=== PATIENT | female | born 1965 | race Caucasian/White ===

== ENCOUNTER 2016-11-05 19:04 | Emergency (ER) | payer OTHER ==
[~2016-11-05] VITALS: Ht 152.4 cm; Wt 58.1 kg
--- NOTE | 2016-11-05 19:46 | ED CARDIAC/CP/PALPITATIONS ---
History of Present Illness General Chief Complaint: Chest Pain Stated Complaint: CP X FEW WEEKS Source: patient, family, old records Exam Limitations: no limitations Vital Signs & Intake/Output Vital Signs & Intake/Output Vital Signs Date Time Temp Pulse Resp B/P B/P Pulse O2 O2 Flow FiO2 Mean Ox Delivery Rate 11/05 2100 98.2 76 17 132/72 99 Room Air 11/05 1924 98.6 84 16 148/84 100 Room Air Allergies Coded Allergies: No Known Allergies (11/05/16) Reconcile Medications Metoclopramide HCl (Reglan) 10 MG TABLET 1 TAB PO TID PRN GI (Reported) 30 minutes before meals and bedtime Topiramate 25 MG TABLET 1 TAB PO DAILY CAR (Reported) Triage Note: TRIAGE: LEFT SIDED CP X WEEKS, STATES IT IS WORSE WITH PHYSICAL MOVEMENT AND ASSISTING PATIENTS AT WORK. INTERMITTENT NAUSEA AND SOB. RECENTLY QUIT SMOKING 4 MONTHS AGO. ALSO REPORTS OCCASSIONAL PAIN IN HER ARMS. DENIES DIAPHORESIS. Triage Nurses Notes Reviewed? yes HPI: Over the past few weeks patient has noticed that she has pain to her left anterior chest radiating to her left shoulder with movement. There is no shortness of breath. There is no chest pain when she is not moving her arm or carrying something. Patient is a physical therapist. There is no dyspnea on exertion or orthopnea. There is no chest pain with activity to does not include movement of her arm or carrying anything heavy. When she has the pain is sharp and stabbing in nature and she rates as a 7 out of 10. Once she stops moving her left arm or puts down a heavy weight the pain entirely goes away. Past History Travel History Traveled to [place] past 21 day No Medical History Any Pertinent Medical History? see below for history Neurological: MIGRAINES EENT: NONE Cardiovascular: MURMUR Respiratory: NONE Gastrointestinal: hiatal hernia, ULCERS Hepatic: NONE Renal: NONE Musculoskeletal: NONE Psychiatric: NONE Endocrine: NONE Surgical History Surgical History: non-contributory Psychosocial History What is your primary language Bel[place]ian Tobacco Use: Quit <30 days ago ETOH Use: occasional use Illicit Drug Use: denies illicit drug use Family History Hx Contributory? No Review of Systems Review of Systems Constitutional: Reports: no symptoms. EENTM: Reports: no symptoms. Respiratory: Reports: no symptoms. Cardiovascular: Reports: see HPI, chest pain. GI: Reports: no symptoms. Genitourinary: Reports: no symptoms. Musculoskeletal: Reports: no symptoms. Skin: Reports: no symptoms. Neurological/Psychological: Reports: no symptoms. Hematologic/Endocrine: Reports: no symptoms. Immunologic/Allergic: Reports: no symptoms. All Other Systems: Reviewed and Negative Physical Exam Physical Exam General Appearance: well developed/nourished, alert, awake, anxious, moderate distress Head: atraumatic, normal appearance Eyes: Bilateral: PERRL, EOMI. Ears, Nose, Throat: normal pharynx, normal ENT inspection, hearing grossly normal Neck: normal inspection, supple, full range of motion, NO JVD Respiratory: normal breath sounds, no respiratory distress, lungs clear, TENDER TO PALPATION Cardiovascular: regular rate/rhythm, normal peripheral pulses Gastrointestinal: normal bowel sounds, soft, non-tender, no organomegaly Back: normal inspection, normal range of motion Extremities: normal inspection, normal capillary refill, normal range of motion, no edema Neurologic/Psych: no motor/sensory deficits, awake, alert, oriented x 3, normal gait, normal mood/affect Skin: intact, normal color, warm/dry Lymphatic: no anterior cervical antonia Core Measures ACS in differential dx? Yes ASA ordered for poss ACS? No-ACS ruled out Severe Sepsis Present: No Septic Shock Present: No Progress Differential Diagnosis: AMI, costochondritis, musculoskeletal pain, myocarditis, pericarditis, pneumonia, pneumothorax, pulmonary embolism, PUD/GERD Plan of Care: Orders Procedure Date/time Status Telemetry/Firmware Manager 11/05 1948 Active TROPONIN LEVEL 11/05 1948 Complete D-DIMER 11/05 1948 Complete COMPREHENSIVE METABOLIC PANEL 11/05 1948 Complete CBC WITHOUT DIFFERENTIAL 11/05 1948 Complete EKG 11/06 1903 Active Laboratory Tests 11/05/16 2000: Anion Gap 9, Estimated GFR > 60, BUN/Creatinine Ratio 21.4, Glucose 82, Calcium 9.0, Total Bilirubin 0.3, AST 13 L, ALT 30, Alkaline Phosphatase 45, Troponin I < 0.01, Total Protein 6.7, Albumin 4.0, Globulin 2.7, Albumin/Globulin Ratio 1.5 , D-Dimer < 200, CBC w Diff NO MAN DIFF REQ, RBC 3.96 L, MCV 80.3 L, MCH 26.6 L, RDW 16.9 H, MPV 7.9, Gran % 45.0, Lymphocytes % 42.6, Monocytes % 9.9 H, Eosinophils % 1.9, Basophils % 0.6, Absolute Granulocytes 3.7, Absolute Lymphocytes 3.5 H, Absolute Monocytes 0.8 H, Absolute Eosinophils 0.2, Absolute Basophils 0.1, PUBS MCHC 33.1 Initial ED EKG: NSR, LVH, no ST T wave changes Prior EKG: unchanged Rhythm Strip: normal sinus rhythm Departure Departure Disposition: HOME OR SELF CARE Condition: Stable Clinical Impression Primary Impression: Chest wall pain Referrals: PATIENT HAS NO PRIMARY CARE DR (PCP/Family) Additional Instructions: RETURN IF SYMPTOMS WORSEN OR FOR ANY CONCERNS Departure Forms: Customer Survey General Discharge Information Prescriptions: Current Visit Scripts Cyclobenzaprine HCl 1 TAB PO Q8P #20 TAB Critical Care Note Critical Care Note Critical Care Time: non-applicable
[2016-11-05] MEDS ORDERED: REGLAN10 M1 PO (20:15)
[2016-11-05] MEDS ORDERED: TOPIRAMATE25 M2 PO (20:15)
[2016-11-05 20:22] LABS: ABSOLUTE BASOPHIL COUNT 0.1 /CUMM (0.0-0.2); ABSOLUTE EOSINOPHIL COUNT 0.2 /CUMM (0.0-0.7); ABSOLUTE GRANULOCYTE CT 3.7 /CUMM (1.4-6.5); ABSOLUTE LYMPH COUNT 3.5 /CUMM (1.2-3.4); ABSOLUTE MONOCYTE COUNT 0.8 /CUMM (0.10-0.60); BASOPHIL % 0.6 % (0.0-2.0); EOSINOPHIL % 1.9 % (0-5); HEMATOCRIT 31.8 % (37-47); MEAN CORPUSCULAR HGB 26.6 PG (27.0-31.0); MEAN CORPUSCULAR HGB CONC 33.1 G/DL (33.0-37.0); MEAN CORPUSCULAR VOLUME 80.3 FL (81.0-99.0); MEAN PLATELET VOLUME 7.9 FL (7.4-10.4); PLATELET COUNT 321 /CUMM (130-400); RBC DISTRIBUTION WIDTH 16.9 % (11.5-14.5); RED BLOOD CELL CT 3.96 /CUMM (4.20-5.40); WHITE BLOOD CELL COUNT 8.1 /CUMM (4.8-10.8)
[2016-11-05 21:01] VITALS: BP 132/72
[2016-11-05] MEDS ORDERED: CYCLOBENZAPRINE10 M1 PO (21:48)
== END 2016-11-05 21:52 ==
LOC: ERH 19:04
PROVIDERS: Emergency Medicine
DX: R07.89 Other chest pain (principal)
CPT/HCPCS: 93005; 93010; 96374; J1885